=== PATIENT | female | born 1990 | race Caucasian/White ===

== ENCOUNTER 2017-01-21 03:08 | Emergency (ER) | payer MEDICAID | END 2017-01-21 04:08 | disposition left against medical advice (07) | LOC: ED 03:08 | DX: M25.522 Pain in left elbow (principal); Z53.21 Procedure and treatment not carried out due to patient leaving prior to being seen by health care provider; W19.XXXA Unspecified fall, initial encounter; Y93.89 Activity, other specified; Y99.8 Other external cause status; Y92.89 Other specified places as the place of occurrence of the external cause ==

== ENCOUNTER 2017-03-24 12:02 | Emergency (ER) | payer MEDICAID ==
[~2017-03-24] VITALS: Ht 165.1 cm; Wt 87.8 kg
[2017-03-24 12:17] VITALS: BP 128/79
[2017-03-24 12:56] LABS: HEMATOCRIT 38.6 % (34.6-47.8); WHITE BLOOD COUNT 4.8 x10^3/uL (3.4-10)
[2017-03-24 12:57] LABS: BLOOD UREA NITROGEN 14 mg/dL (7-18)
[2017-03-24 13:05] LABS: ASPARTATE AMINO TRANSFERASE 13 U/L (15-37)
[2017-03-24 13:10] LABS: DIFF TOTAL CELLS COUNTED 100 CELL DIFF
[2017-03-24 13:12] LABS: VERIFY COUNTS? YES
[2017-03-24 13:13] LABS: ANISOCYTOSIS 1+; MICROCYTOSIS 2+; POIKILOCYTOSIS 1+
[2017-03-24 13:14] LABS: OVALOCYTES 2+
[2017-03-24 13:15] LABS: ACANTHOCYTES 1+; HYPOCHROMIA 2+
[2017-03-24 14:48] LABS: PATH.CAST-FLAG NOT PRESENT; SPERM-FLAG NOT PRESENT; SRC-FLAG NOT PRESENT; XTAL-FLAG NOT PRESENT; YLC-FLAG NOT PRESENT
[2017-03-24] MEDS ORDERED: CEFTRIAXONE 250 MG ONE (15:53)
[2017-03-24] MEDS ORDERED: AZITHROMYCIN 250 MG TABLET ONE (15:53)
[2017-03-24] MEDS ORDERED: CEFTRIAXONE 250 MG IM ONE (16:00)
[2017-03-24] MEDS ORDERED: AZITHROMYCIN 500 MG TABLET PO ONE (16:00)
== END 2017-03-24 16:26 | disposition home or self-care (01) ==
LOC: ED 16:00
DX: N76.0 Acute vaginitis (principal); J02.8 Acute pharyngitis due to other specified organisms
CPT/HCPCS: 36415; 76801; 80053; 81001; 84702; 85025; 86901; 87077; 87081; 87086; 87147; 87210; 87491; 87591; 87808; 87880; 96372; 99285; J0696; 87186

== ENCOUNTER 2017-03-26 20:50 | Emergency (ER) | payer MEDICAID ==
[~2017-03-26] VITALS: Ht 165.1 cm; Wt 82.0 kg
[2017-03-26 21:02] VITALS: BP 153/98
[2017-03-26 21:53] LABS: DAU SCREEN DISCLAIMER
[2017-03-26] MEDS ORDERED: ZIPRASIDONE 20 MG INJ IM ONE (22:00)
[2017-03-26 22:11] LABS: HCG UR OBC PASS
== END 2017-03-26 23:30 | disposition home or self-care (01) ==
LOC: ED 22:01
DX: F22 Delusional disorders (principal); Z72.9 Problem related to lifestyle, unspecified; F15.10 Other stimulant abuse, uncomplicated
CPT/HCPCS: 80307; 81003; 81025; 99284

== ENCOUNTER 2017-09-16 05:55 | Emergency (ER) | payer MEDICAID ==
[~2017-09-16] VITALS: Ht 152.4 cm; Wt 84.0 kg
[2017-09-16 06:06] VITALS: BP 163/103
[2017-09-16] MEDS ORDERED: LORazepam 1MG TABLET ONE (06:22)
[2017-09-16] MEDS ORDERED: LORazepam 1MG TABLET PO ONE (06:30)
== END 2017-09-16 06:38 | disposition home or self-care (01) ==
LOC: ED 06:36
DX: F15.129 Other stimulant abuse with intoxication, unspecified (principal)
CPT/HCPCS: 99283

== ENCOUNTER 2018-01-15 08:48 | Emergency (ER) | payer MEDICAID ==
[~2018-01-15] VITALS: Ht 165.1 cm; Wt 72.0 kg
[2018-01-15] MEDS ORDERED: LORazepam 2 MG/ML, 1ML IVPush ONE (10:00)
[2018-01-15] MEDS ORDERED: SODIUM CHLORIDE FLUSH 10ML SYR IVF ONE (10:00)
[2018-01-15 10:25] LABS: BASOPHILS # (AUTO) 0.02 x10^3/uL (0-0.1); BASOPHILS % (AUTO) 0 % (0-1); EOSINOPHILS # (AUTO) 0.02 x10^3/uL (0-0.4); EOSINOPHILS % (AUTO) 0 % (1-7); LYMPHOCYTES # (AUTO) 2.21 x10^3/uL (1-3.4); LYMPHOCYTES % (AUTO) 22 % (22-44); MD NO; MEAN CORPUSCULAR HEMOGLOBIN 21.3 pg (27.0-34.8); MEAN CORPUSCULAR HGB CONC 31.8 g/dL (32.4-35.8); MEAN CORPUSCULAR VOLUME 66.9 fL (80-100); MEAN PLATELET VOLUME 8.8 fL (7.4-10.4); MONOCYTES % (AUTO) 8 % (2-9); NEUTROPHILS # (AUTO) 6.97 x10^3/uL (1.8-6.8); NEUTROPHILS % (AUTO) 70 % (42-75); PLATELET COUNT 367 x10^3/uL (130-400); RED BLOOD COUNT 5.91 x10^6/uL (3.82-5.3); RED CELL DISTRIBUTION WIDTH 15.3 % (9.6-15.2)
[2018-01-15 10:28] LABS: MICROSCOPIC INDICATED
[2018-01-15 10:35] LABS: ALANINE AMINOTRANSFERASE 21 U/L (12-78); ALBUMIN 4.4 g/dL (3.4-5.0); ANION GAP 7 mmol/L (5-15); CHLORIDE 109 mmol/L (98-107)
[2018-01-15 10:36] LABS: CULTURE INDICATED? YES
[2018-01-15 10:37] LABS: ALKALINE PHOSPHATASE 46 U/L (45-117); BILIRUBIN,TOTAL 0.6 mg/dL (0.2-1.0); TOTAL PROTEIN 7.9 g/dL (6.4-8.2)
[2018-01-15] MEDS ORDERED: KETOROLAC 30 MG/1 ML IM ONE (11:30)
[2018-01-15] MEDS ORDERED: KETOROLAC 30 MG/1 ML ONE (11:45)
[2018-01-15] MEDS ORDERED: LORazepam 2 MG/ML, 1ML ONE (11:47)
[2018-01-15 11:56] VITALS: BP 127/89
== END 2018-01-15 13:01 | disposition home or self-care (01) ==
LOC: ED 10:24
DX: M25.572 Pain in left ankle and joints of left foot (principal); M25.571 Pain in right ankle and joints of right foot; F15.20 Other stimulant dependence, uncomplicated; F17.200 Nicotine dependence, unspecified, uncomplicated; F41.1 Generalized anxiety disorder; Z72.9 Problem related to lifestyle, unspecified
CPT/HCPCS: 36415; 80053; 81001; 83605; 85025; 87040; 87086; 96372; 96374; 99284; J1885; J2060